=== PATIENT | female | born 1995 | race American Indian/Alaskan Native ===

== ENCOUNTER 2017-08-24 12:52 | Emergency (ER) | payer SELFPAY ==
[2017-08-24 13:14] VITALS: BP 149/97
[2017-08-24] MEDS ORDERED: PEPCID PO ONE (13:50)
[2017-08-24] MEDS ORDERED: DELTASONE PO ONE (13:50)
--- NOTE | 2017-08-24 13:55 | Emergency Department Report ---
ED Rash HPI - HPI Chief Complaint: Skin Rash Stated Complaint: RASH Time Seen by Provider: 08/24/17 13:50 Duration: 2 Days Location: Chest, Back, Abdomen Suspected Cause: Medication (Mucinex) Rash Symptoms: Yes Itching, No Facial Swelling, No Tongue/Oral Swelling, No Breathing Difficulties, No Choking Sensation, No Wheezing/Dyspnea, No Peeling, No Blistering, No Fever, No Lightheaded, No Malaise, No Myalgias Severity: moderate ED Review of Systems ROS: Stated complaint: RASH Other details as noted in HPI Comment: All other systems reviewed and negative Other: Constitutional: No fevers chills Eyes: No eye pain visual changes ENT: No ear pain or throat pain Neck: Denies pain Respiratory: Denies cough wheezing shortness of breath Cardiovascular: Denies chest pain, palpitations, syncope GI: Denies abdominal pain, nausea, vomiting, diarrhea : Denies dysuria Musculoskeletal: Denies back pain, joint swelling Skin: As per HPI Neurologic: Denies headache, numbness, weakness Psychiatric: Denies suicidal ideation, hallucinations ED Past Medical Hx - Past Medical History Previous Medical History?: No - Surgical History Past Surgical History?: No - Social History Smoking Status: Never Smoker Substance Use Type: None - Medications Home Medications: Home Medications Medication Instructions Recorded Confirmed Last Taken Type Famotidine [Pepcid] 20 mg PO BID #10 tablet 08/24/17 Unknown Rx diphenhydrAMINE [Benadryl CAP] 50 mg PO Q8HR PRN #30 capsule 08/24/17 Unknown Rx predniSONE [Deltasone] 40 mg PO QDAY 5 Days tablet 08/24/17 Unknown Rx Rash Exam - Exam General: Vital signs noted. No distress. Alert and acting appropriately. HEENT: No Periorbital Edema, No Conjuctival Injection, No Chemosis, No Perioral Edema, No Tongue Edema, No Uvular Edema, No Compromised Airway, No Drooling Lungs: Yes Good Air Exchange, No Wheezes, No Ronchi, No Stridor, No Cough, No Labored Respirations, No Use of Accessory Muscles, No Other Abnormal Lung Sounds Skin: Yes Urticarial Rash (to chest, abdomen, and back), Yes Maculopapular Rash (to chest, abdomen, and back), Yes Erythema, No Morbilliform rash, No Bulla(e), No Excoriations, No Weeping, No Tenderness, No Edema, No Encrustations ED Course Vital Signs 08/24/17 13:11 Temperature 98.6 F Pulse Rate 96 H Respiratory 16 Rate Blood Pressure 149/97 O2 Sat by Pulse 100 Oximetry - Reevaluation(s) Reevaluation #1: 08/24/17 13:52 Treated with oral Pepcid and prednisone. Patient took Benadryl prior to arrival ED Medical Decision Making - Medical Decision Making Patient's rash seems to be allergic in nature and [id number] at this time. New exposure to Mucinex. Patient discontinued med. Will be treated symptomatically and follow up will be encouraged. - Differential Diagnosis allergic reaction, viral syndrome Critical Care Time: No Critical care attestation.: If time is entered above; I have spent that time in minutes in the direct care of this critically ill patient, excluding procedure time. ED Disposition Clinical Impression: Allergic reaction, Rash Disposition: DC- TO HOME OR SELFCARE Is pt being admited?: No Does the pt Need Aspirin: No Condition: Stable Instructions: Urticaria (ED), Allergies (ED) Prescriptions: diphenhydrAMINE [Benadryl CAP] 50 mg PO Q8HR PRN #30 capsule PRN Reason: Allergic Reaction Famotidine [Pepcid] 20 mg PO BID #10 tablet predniSONE [Deltasone] 40 mg PO QDAY 5 Days tablet Referrals: PARVEEN CAST MD [Primary Care Provider] - 3-5 Days [facility] [Provider Group] - 3-5 Days NADINE ISLAS JR, MD [Staff Physician] - 3-5 Days (ed educational aide) PILLO CARBAJAL MD [Referring] - 3-5 Days (ed educational aide) Forms: Work/School Release Form(ED) Time of Disposition: 13:55
== END 2017-08-24 14:08 | disposition home or self-care (01) ==
LOC: ED 12:52
DX: T78.40XA Allergy, unspecified, initial encounter (principal); X58.XXXA Exposure to other specified factors, initial encounter
CPT/HCPCS: 99282; J7512